=== PATIENT | female | born 2000 | race Caucasian/White ===

== ENCOUNTER 2025-01-29 18:50 | Emergency (ER) | payer SELFPAY ==
[2025-01-29 18:52] VITALS: BP 129/82; PULSE 95; RESP 16; TEMP 35.9; O2SAT 97; BMI 36.1
[2025-01-29 20:27] LABS: Bacteria 0 SEEN /hpf (None Seen)
--- NOTE | 2025-01-29 20:35 | EDS_ITS ---
HPI HPI - Female History of Present Illness Chief Complaint: Vag Bld, Preg Informant: patient Pain Pain: Positive for Pelvic Pain Onset: Days (4) Context: Gradual Onset Timing: Intermittent Quality: Positive for Cramping Location: RLQ Worsened by: - (Nothing) Relieved by: - (Nothing) Bleeding Issue: Positive for Vaginal bleeding Onset: Days (4) Context: Gradual Onset Timing: Continuous Current Severity: Similar to period Maximum Severity: Similar to period Associated Symptoms Associated Symptoms: Negative for Dysuria, Frequency or Urgency Test: Positive Narrative Narrative: Patient presents with vaginal bleeding and cramping for the past 4 days. Patient states she took a home test which was positive. Patient states her cramping has been intermittent. Patient states it is over the right lower abdomen. Patient denies any radiation of the pain. Patient denies any nausea or vomiting. Patient states her bleeding was light initially but now it is similar to a normal period. Patient denies any urinary complaints. Patient does not have an CHANGE MANAGEMENT MANAGER that she follows with. PFSH PFS Medical History no medical history no medical history Home Medications ?Medication ?Instructions ?Recorded ?Last Taken ?Type NK 01/29/25 Unknown History Allergy/AdvReac Type Severity Reaction Status Date / Time Penicillins Allergy Mild Hives Verified 01/29/25 18:52 Sulfa (Sulfonamide Allergy Mild Hives Verified 01/29/25 18:52 Antibiotics) Family History no significant family his Surgical History (Updated 01/29/25 @ 23:[address] Ricci Guzman, DO) Hx of tonsillectomy Surgical History no surgical history Social History (Updated 01/29/25 @ 23:[address] Ricci Guzman, ) Smoking Status: Current every day smoker tobacco type: e-cigarettes substance use type: marijuana ROS ROS ED Constitutional Constitutional ED: Denies chills or fever(s) Eyes Eyes: Denies blurry vision or change in vision ENT ENT ED: Denies rhinorrhea or sore throat Cardiovascular Cardiovascular: Denies chest pain or palpitations Respiratory/Chest Respiratory/Chest: Denies cough or dyspnea Gastrointestinal Gastrointestinal: Reports abdominal pain and nausea; Denies vomiting Genitourinary Genitourinary ED: Denies dysuria or hematuria Musculoskeletal Musculoskeletal: Denies back pain or neck pain Integumentary Denies abscess or rash Neurologic Neurologic: Denies headache(s) or weakness Allergic/Immunologic Allergic/Immunologic ED: Denies mouth swelling or urticaria EXAM Physical Exam Const Vital Signs: 01/29/25 18:52 01/29/25 20:51 01/29/25 22:00 Temperature 96.6 F L Temperature Source Temporal Pulse Rate 95 70 79 Respiratory Rate 16 16 16 Blood Pressure 129/82 H 119/59 L 120/69 Blood Pressure Mean 97 79 86 Pulse Ox 97 100 100 Oxygen Delivery Method Room Air Room Air Room Air 01/29/25 22:48 Temperature 97 F L Temperature Source Pulse Rate 77 Respiratory Rate 16 Blood Pressure 121/59 H Blood Pressure Mean 79 Pulse Ox 100 Oxygen Delivery Method Positive well nourished and well developed Constitutional Narrative: BMI is 36.1 General Appearance ED: well developed and NAD HEENT Reports moist mucous membranes Neck supple and no JVD Resp normal respiratory effort and clear to auscultation bilaterally Cardio regular rate and regular rhythm GI soft to palpation and non-distended Palpation: tender RLQ (Mild); Negative for guarding Neuro oriented x3, CN's II-XII intact bilaterally and no sensory deficits noted Sensorium / Orientation: alert Motor Exam: strength 5/5 throughout Psych mental status grossly normal MDM MDM MDM Narrative Medical decision making narrative: Differential diagnosis includes ectopic , threatened miscarriage, urinary tract infection, anemia, electrolyte abnormality, and anxiety. CBC will be obtained to assess for leukocytosis and anemia. Comprehensive metabolic profile will be obtained to assess for electrolyte abnormality, renal function, and hepatic function. Lipase will be obtained to assess for pancreatitis. Quantitative hCG will be obtained to assess for . Urinalysis will be obtained to assess for urinary tract infection and hematuria. Lab Data Attestation: I reviewed the patient's lab results. Lab results narrative: CBC was reviewed. There is a mild leukocytosis of 13.0. The remainder is within normal limits. Comprehensive metabolic profile was reviewed. The remainder is within normal limits. Lipase was reviewed and was normal at 59. Quantitative hCG was reviewed and was positive at 44. Urinalysis was reviewed. Leukocyte esterase was 25. There are 5-10 white blood cells and 5-10 red blood cells. Labs: Laboratory Results - last 24 hr 01/29/25 01/29/25 19:59 20:09 WBC 13.0 H RBC 4.02 L Hgb 12.6 Hct 38.1 MCV 94.8 MCH 31.3 MCHC 33.1 RDW Std Deviation 43.2 RDW Coeff of Rayne 12.3 Plt Count 248 MPV 11.5 Immature Gran % (Auto) 0.500 Neut % (Auto) 66.3 Lymph % (Auto) 22.1 Luna % (Auto) 9.3 Eos % (Auto) 1.5 Baso % (Auto) 0.3 Absolute Neuts (auto) 8.6 H Absolute Lymphs (auto) 2.86 Nucleated RBC % 0 Differential Comment SCANNED Platelet Estimate ADEQUATE Sodium 141 Potassium 4.6 Chloride 108 Carbon Dioxide 22.6 Anion Gap 11 BUN 9 Creatinine 0.68 L Estim Creat Clear Calc 140.23 Est GFR (MDRD) Non-Af 126 BUN/Creatinine Ratio 13.9 Glucose 82 Calcium 9.0 Total Bilirubin < 0.15 AST 37 H ALT 15 Alkaline Phosphatase 72 Total Protein 7.0 Albumin 4.0 Globulin 3.0 Albumin/Globulin Ratio 1.3 Lipase 59 HCG, Quant 44 H Serum , Qual POSITIVE > 10 Urine Color Yellow Urine Clarity Sl. Cloudy Urine pH 6.0 Ur Specific Ross 1.025 Urine Protein 30 H Urine Glucose (UA) Normal Urine Ketones Negative Urine Occult Blood 250 H Urine Nitrite Negative Urine Bilirubin Negative Urine Urobilinogen Normal Ur Leukocyte Esterase 25 H Urine RBC 5-10 SEEN Urine WBC 5-10 SEEN Ur Squamous Epith Cells 0-5 SEEN Urine Bacteria 0 SEEN Urine Mucus 1+ Treatment and Re-Evaluation Narrative: Patient was given IV fluids. Patient was advised that since her quantitative hCG level is so low, pelvic ultrasound would not show anything at this time. Patient was instructed on pelvic rest. Patient was given a referral for primary care and CHANGE MANAGEMENT MANAGER. Patient was instructed to follow-up in 2 days for repeat kwesi ntitative hCG. Patient was instructed to return if worse in any way. Patient understood and was agreeable with the plan. All questions were answered. Discharge Plan Triage Chief Complaint: Vag Bld, Preg ED Provider: Ricci Guzman Dx/Rx/DC Orders Clinical Impression: Threatened miscarriage, Instructions: Miscarriage Threatened Prescriptions: No Action NK Primary Care Provider: Care Physician,No Primary Referrals: Morgan Fletcher DO [Med Staff - Community Health Program Representative] - 5-7 Days Lilibeth Valdez DO [Med Staff - Active Staff] - 2 Days Care Physician,No Primary [Primary Care Provider] - Print Language: Mongolian Disposition Disposition: Home, Self Care Discharge Date/Time: 01/29/25 22:52
[2025-01-29 20:51] VITALS: BP 119/59; PULSE 70; RESP 16; O2SAT 100
[2025-01-29 20:54] LABS: Absolute Lymphocyte Count 2.86 X10^3/uL (0.83-4.51); Absolute Neutrophil Count 8.6 X10^3/uL (2.0-7.7); Basophil# 0.04 X10^3/uL; Basophil% 0.3 % (0-1); Eosinophils% 1.5 % (0-5); Hematocrit 38.1 % (37-47); Hemoglobin 12.6 g/dL (12.0-15.0); Internal QC Validated? YES +Cl - CLEAR BKGD; Lymphocyte # 2.86 X10^3/ul (0.83-4.51); Lymphocyte % 22.1 % (19-41); Mean Corp Hgb Conc 33.1 g/dL (32-36); Mean Corpuscular Hgb 31.3 pg (27.0-32.0); Mean Corpuscular Volume 94.8 fL (81-99); Mean Platelet Vol. 11.5 fl (6.2-12.0); Monocyte# 1.21 X10^3/uL; Monocyte% 9.3 % (0-10); NRBC Flagged by Analyzer 0 % (0-5); Neutrophil # 8.59 X10^3/uL (2.7-7.7); Neutrophil % 66.3 % (47-70); POSITIVE COUNT YES; RBC Distribution Width CV 12.3 % (11.6-14.6); RBC Distribution Width SD 43.2 fl (35.1-43.9); Record Kit Lot#, Serum Preg. 947241; Red Blood Count 4.02 M/mm3 (4.2-5.4)
[2025-01-29] MEDS: 0.9% Normal Saline (1000mL) 1,000 ML 999 ML IV (20:57)
[2025-01-29 20:58] LABS: Pregnancy, Serum, hCG Quali. POSITIVE > 10 Negative
[2025-01-29 21:00] LABS: Differential Indicated SCAN CRITERIA MET
[2025-01-29 21:11] LABS: Color, Urine Yellow (Yellow); Glucose, Dipstick Normal (Normal); Ketone-Dipstick Negative (Negative); Leukocyte Esterase-Dipstick 25 /ul (Negative); Nitrite-Dipstick Negative (Negative); Occult Blood-Urine 250 /ul (Negative); Protein-Dipstick 30 mg/dl (Negative); Specific Gravity, Urine 1.025 (1.002-1.030); Urine Bilirubin Dipstick Negative (Negative); Urine Clarity Sl. Cloudy (Clear); Urine Urobilinogen Normal (Normal)
[2025-01-29 21:14] LABS: Lipase 59 U/L (13-75)
[2025-01-29 21:24] LABS: ALB/GLOB Ratio 1.3 RATIO (0.9-2.4); AST(SGOT) 37 U/L (<=31); Alanine Aminotransfer ALT/SGPT 15 U/L (<=34); Alkaline Phosphatase 72 U/L (35-104); Anion Gap 11 (5-15); BUN 9 mg/dL (4-19); BUN/Creat Ratio 13.9 RATIO (10-20); Carbon Dioxide 22.6 mmol/L (21.0-32.0); Chloride 108 mmol/L (98-108); Creatinine, Serum 0.68 mg/dL (0.70-1.20); EST Glomerular Filtration Rate 126 (>60); Estimated Creatinine Clearance 140.23 ml/min (50-250); Glucose 82 mg/dL (70-99); Potassium 4.6 mmol/L (3.3-5.1); Sodium Level 141 mmol/L (133-145); Total Bilirubin < 0.15 mg/dL (0.00-1.30)
[2025-01-29 21:43] LABS: Platelet Count 248 K/mm3 (150-450)
[2025-01-29 21:45] LABS: Differential Comment SCANNED; Platelet Estimate ADEQUATE (ADEQ)
[2025-01-29 22:00] VITALS: BP 120/69; PULSE 79; RESP 16; O2SAT 100
[2025-01-29 22:03] LABS: Red Blood Cells-Urine 5-10 SEEN /hpf (0-5); White Blood Cells 5-10 SEEN /hpf (0-5)
[2025-01-29 22:04] LABS: Squamous Epithelial Cells - UA 0-5 SEEN /hpf (5-10)
[2025-01-29 22:05] LABS: Mucous, Urine 1+ /hpf (<or=2+)
[2025-01-29 22:05] LABS: hCG Titer Quant., Serum 44 mIU/mL (<9 non-preg)
[2025-01-29 22:48] VITALS: BP 121/59; PULSE 77; RESP 16; TEMP 36.1; O2SAT 100
== END 2025-01-29 22:52 | disposition home or self-care (01) ==
PROVIDERS: Emergency Provider Emergency Medicine; Visit Provider Emergency Medicine
DX: O20.0 Threatened abortion (principal); F17.290 Nicotine dependence, other tobacco product, uncomplicated; O99.119 Other diseases of the blood and blood-forming organs and certain disorders involving the immune mechanism complicating pregnancy, unspecified trimester; D72.829 Elevated white blood cell count, unspecified
CPT/HCPCS: 80053; 81001; 83690; 84702; 84703; 85025; 96360; 96361; 99282; A4216